=== PATIENT | male | born 1965 | race Caucasian/White ===

== ENCOUNTER 2018-04-05 21:30 | Emergency (ER) | payer SELFPAY ==
[2018-04-05 21:36] VITALS: BP 154/96
--- NOTE | 2018-04-05 21:59 | EDPHY ---
H & P Stated Complaint: wants detox Time Seen by Provider: 04/05/18 21:52 HPI/ROS: CHIEF COMPLAINT: Intoxication HISTORY OF PRESENT ILLNESS: Patient is a 52-year-old man who is visiting from out of town but will not say from where. He was out drinking tonight when some "people" became concerned and brought him to the ER. He has slurred speech. He is able to ambulate safely. He denies, ingestants. He denies having any significant medical history. Severity: Moderate Modifying factors: None REVIEW OF SYSTEMS: Unable to obtain secondary to condition Physical Exam General Appearance: WD/WN, no apparent distress, slurred speech but answers questions appropriately EENT: PERRL/EOMI, normal ENT inspection, TMs normal, pharynx normal Neck: non-tender, full range of motion, supple, normal inspection Respiratory: chest non-tender, lungs clear, normal breath sounds Cardiac/Chest: normal peripheral pulses, regular rate, rhythm, P Peripheral Pulses: 2+: carotid (R), carotid (L), femoral (R), femoral (L), dorsalis-pedis (R), dorsalis-pedis (L) Abdomen: normal bowel sounds, non-tender, soft Extremities: normal range of motion, non-tender, normal inspection, normal capillary refill Neurological: calm, 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 Appearance: appropriate appearance, appropriate insight, neat, denies illness Behavior/Eye Contact/Speech: cooperative, decreased rate of speech Thoughts/Hallucinations: normal thought pattern, no apparent hallucination Skin: normal color, warm/dry Source: Patient Exam Limitations: No limitations - Personal History Current Tetanus Diphtheria and Acellular Pertussis (TDAP): Unsure - Medical/Surgical History Hx Asthma: No Hx Chronic Respiratory Disease: No Hx Diabetes: No Hx Cardiac Disease: No Hx Renal Disease: No Hx Cirrhosis: No Hx Alcoholism: No Hx HIV/AIDS: No Hx Splenectomy or Spleen Trauma: No Other PMH: alcohol, hypertension - Family History Significant Family History: No pertinent family hx - Social History Smoking Status: Current every day smoker Alcohol Use: None Drug Use: None Constitutional: Initial Vital Signs Temperature (C) 36.6 C 04/05/18 21:33 Heart Rate 90 04/05/18 21:33 Respiratory Rate 20 04/05/18 21:33 Blood Pressure 154/96 H 04/05/18 21:33 O2 Sat (%) 94 04/05/18 21:33 O2 Delivery Mode Room Air Allergies/Adverse Reactions: No Known Allergies Allergy (Unverified 04/05/18 22:27) Home Medications: Medication Instructions Recorded Bactrim DS 04/05/18 Lisinopril 04/05/18 Wellbutrin Sr 04/05/18 Medical Decision Making ED Course/Re-evaluation: 10:00 p.m. After I left the room the patient got up and walked out. He was ambulating steadily and did not stop when we asked him to stop. He was not on a hold. He is not driving. Differential Diagnosis: Partial list of the Differential diagnosis considered include but were not limited to; intoxication, substance abuse and although unlikely based on the history and physical exam, I also considered head injury, infection. Departure - Departure Disposition: Against Medical Advice Clinical Impression: Alcoholic intoxication Qualifiers: Complication of substance-induced condition: uncomplicated Qualified Code(s): F10.920 - Alcohol use, unspecified with intoxication, uncomplicated Condition: Fair Referrals: NONE *PRIMARY CARE P,. [Primary Care Provider] - As per Instructions
== END 2018-04-05 22:18 | disposition left against medical advice (07) ==
DX: F10.920 Alcohol use, unspecified with intoxication, uncomplicated (principal); I10 Essential (primary) hypertension; F17.200 Nicotine dependence, unspecified, uncomplicated

== ENCOUNTER 2018-04-05 22:24 | Emergency (ER) | payer SELFPAY ==
[2018-04-05 22:29] VITALS: BP 146/90
--- NOTE | 2018-04-05 22:41 | EDPHY ---
H & P Stated Complaint: requesting detox Time Seen by Provider: 04/05/18 22:31 HPI/ROS: CHIEF COMPLAINT: Intoxication HISTORY OF PRESENT ILLNESS: Patient is a 52-year-old man visiting from out of town who returns requesting detox. States that he is an alcoholic. I saw him here about an hour ago after strangers brought him for public intoxication. He denies injury. He will not provide much medical history. He states that he has had withdrawal problems with foreign will need medications. No current injuries. He was drinking up to about an hour ago. He was able to ambulate without difficulty and eloped earlier from the department. Severity: Moderate Modifying factors: The none REVIEW OF SYSTEMS: Unable to obtain secondary to condition EXAM: GENERAL: Well-appearing, well-nourished and in no acute distress. HEAD: Atraumatic, normocephalic. EYES: Pupils equal round and reactive to light, extraocular movements intact, sclera anicteric, conjunctiva are normal. ENT: TMs normal, nares patent, oropharynx clear without exudates. Moist mucous membranes. NECK: Normal range of motion, supple without lymphadenopathy or JVD. LUNGS: Breath sounds clear to auscultation bilaterally and equal. No wheezes rales or rhonchi. HEART: Regular rate and rhythm without murmurs, rubs or gallops. ABDOMEN: Soft, nontender, normoactive bowel sounds. No guarding, no rebound. No masses appreciated. BACK: No CVA tenderness, no spinal tenderness, step-offs or deformities EXTREMITIES: Normal range of motion, no pitting or edema. No clubbing or cyanosis. NEUROLOGICAL: Cranial nerves II through XII grossly intact. Normal speech, normal gait. 5/5 strength, normal movement in all extremities, normal sensation , normal reflexes PSYCH: Normal mood, normal affect. SKIN: Warm, dry, normal turgor, no visible rashes or lesions. Source: Patient Exam Limitations: Intoxication - Personal History Current Tetanus Diphtheria and Acellular Pertussis (TDAP): Yes - Medical/Surgical History Hx Asthma: No Hx Chronic Respiratory Disease: No Hx Diabetes: No Hx Cardiac Disease: No Hx Renal Disease: No Hx Cirrhosis: No Hx Alcoholism: No Hx HIV/AIDS: No Hx Splenectomy or Spleen Trauma: No Other PMH: alcohol, hypertension - Social History Smoking Status: Current every day smoker Constitutional: Initial Vital Signs Temperature (C) 36.6 C 04/05/18 22:28 Heart Rate 93 04/05/18 22:28 Respiratory Rate 16 04/05/18 22:28 Blood Pressure 146/90 H 04/05/18 22:28 O2 Sat (%) 94 04/05/18 22:28 O2 Delivery Mode Room Air Allergies/Adverse Reactions: No Known Allergies Allergy (Unverified 04/05/18 22:27) Home Medications: Medication Instructions Recorded Bactrim DS 04/05/18 Lisinopril 04/05/18 Wellbutrin Sr 04/05/18 Medical Decision Making ED Course/Re-evaluation: The patient is ambulating without difficulty. He [facility]. He states that he has had trouble with withdrawals in the past. Will send him with Librium pack. He is still intoxicated is not yet withdrawing. Differential Diagnosis: Partial list of the Differential diagnosis considered include but were not limited to; intoxication, withdrawal and although unlikely based on the history and physical exam, I also considered head injury, infection. - Data Points Medications Given: Discontinued Medications Chlordiazepoxide (Librium 25 Mg Prepack#6) 1 [facility] ONE Stop: 04/05/18 22:43 Last Admin: 04/05/18 23:24 Dose: Not Given Departure - Departure Disposition: Home, Routine, Self-Care Clinical Impression: Alcoholic intoxication Qualifiers: Complication of substance-induced condition: uncomplicated Qualified Code(s): F10.920 - Alcohol use, unspecified with intoxication, uncomplicated Condition: Fair Instructions: Chlordiazepoxide (By mouth) Referrals: NONE *PRIMARY CARE P,. [Primary Care Provider] - As per Instructions Rissa Aviles MD [[facility] [place] - As per Instructions
[2018-04-05] MEDS ORDERED: CHLORDIAZEPOXIDE 25MG PREPK#6 BTL TAKEHOME ONE (22:42)
== END 2018-04-05 22:55 | disposition home or self-care (01) ==
DX: F10.920 Alcohol use, unspecified with intoxication, uncomplicated (principal); I10 Essential (primary) hypertension; F10.20 Alcohol dependence, uncomplicated; F17.200 Nicotine dependence, unspecified, uncomplicated